=== PATIENT | female | born 1980 ===

== ENCOUNTER 2019-03-24 10:47 | Emergency (ER) | payer BC, OTHER ==
[2019-03-24 11:17] VITALS: BP 115/69
[2019-03-24] MEDS ORDERED: Tetan/Diph/Pertus SYR(Tdap)* 0.5 ML SYR(BOOSTRIX) use SYR IM ONE (11:47)
--- NOTE | 2019-03-24 12:29 | UC ---
Laceration HPI - HPI Summary HPI Summary: 39 y/o female presents to the urgent care c/o puncture wound in medial aspect of the palm of hand w/ a [place] fence last night. Pt reports she slipped and to avoid falling she grabbed a fence and cut his hand. Cut was superficial, but she is not UTD w/ Tetanus vaccine. Pt irrigated well wound w/ Hydrogen peroxide and applied Triple antibiotic. Pain is 2/10 at touch. Seh can move her finger w/o any difficulty. Pt denies fever, SOB, chest pain, abdominal pain, N/V /D. - History Of Current Complaint Chief Complaint: UCSkin Stated Complaint: PUNCTURE WOUND RT HAND Time Seen by Provider: 03/24/19 11:46 Hx Obtained From: Patient Laceration Location: Hand - medial aspect of RT hand w/ a superficial puncture wound w/ a [place] fence last night Mechanism Of Injury: Sharp Trauma Onset/Duration: Sudden Onset, Lasting Hours - 12 hrs Severity: Mild Pain Intensity: 1 Pain Scale Used: 0-10 Numeric Aggravating Factors: Other: - touch Related History: Dominant Hand Right - Allergies/Home Medications Allergies/Adverse Reactions: Allergies Allergy/AdvReac Type Severity Reaction Status Date / Time Penicillins Allergy Unknown Verified 03/24/19 14:09 Reaction Details PMH/Surg Hx/FS Hx/Imm Hx Previously Healthy: Yes - Pt denies PMHX - Surgical History Surgical History: Yes Surgery Procedure, Year, and Place: lap endo metreosis removed - Family History Known Family History: Positive: Hypertension - Social History Occupation: Employed Full-time Lives: With Family Alcohol Use: Daily Substance Use Type: None Smoking Status (MU): Never Smoked Tobacco - Immunization History Hx Tetanus, Diphtheria Vaccination: No - Unknown Review of Systems All Other Systems Reviewed And Are Negative: Yes Constitutional: Positive: Negative Skin: Positive: Other - ouncture wound in the Rt palm w/ a [place] fence Eyes: Positive: Negative ENT: Positive: Negative Respiratory: Positive: Negative Cardiovascular: Positive: Negative Gastrointestinal: Positive: Negative Genitourinary: Positive: Negative Motor: Positive: Negative Neurovascular: Positive: Negative Musculoskeletal: Positive: Other: - Rt hand pain s/p puncture w/ a [place] fence Neurological: Positive: Negative Psychological: Positive: Negative Is Patient Immunocompromised?: No Physical Exam - Summary Physical Exam Summary: Vital Signs Reviewed: Yes General: well developed, well nourished female sitting in the examining table w/ o any apparent distress Eye Exam: Normal Eyes: Positive: Conjunctiva Clear - PERRLA, EOMI, fundi grossly normal ENT: Positive: Normal ENT inspection, Hearing grossly normal, Pharynx normal, TMs normal Neck: Positive: Supple, Nontender, No Lymphadenopathy Respiratory: Positive: Chest non-tender, Lungs clear, Normal breath sounds, No respiratory distress Cardiovascular: Positive: RRR, No Murmur, Pulses Normal, Brisk Capillary Refill Abdomen Description: Positive: Nontender, No Organomegaly, Soft. Negative: CVA Tenderness (R), CVA Tenderness (L) Bowel Sounds: Positive: Present Musculoskeletal: Positive: Strength Intact, ROM Intact, No Edema Neurological: Positive: Alert, Muscle Tone Normal Psychological Exam: Normal Skin: Positive:Lateral side of RT palm hand w/ diagonal linear superficial puncture wound about 0.5cm in size, no bleeding, no foreign body observed. mild tenderness to palpation, . FROM of RT hand, sensation intact, capillary refill brisk, and pulses WNL. Triage Information Reviewed: Yes Vital Signs: Initial Vital Signs Temp 98.3 F 03/24/19 11:13 Pulse 71 03/24/19 11:13 Resp 18 03/24/19 11:13 BP 115/69 03/24/19 11:13 Pulse Ox 100 03/24/19 11:13 Laceration Course/Dx - Course/Dx Course Of Treatment: 39 y/o female presents to the urgent care c/o puncture wound in medial aspect of the palm of hand w/ a [place] fence last night. Pt reports she slipped and to avoid falling she grabbed a fence and cut his hand. Cut was superficial, but she is not UTD w/ Tetanus vaccine. Pt irrigated well wound w/ Hydrogen peroxide and applied Triple antibiotic. Pain is 2/10 at touch. She can move her finger w/o any difficulty. Pt denies fever, SOB, chest pain, abdominal pain, N/V /D. Hx obtained.Pt w/ Lateral side of RT palm hand w/ diagonal linear superficial puncture wound about 0.5cm in size, no bleeding, no foreign body observed. mild tenderness to palpation. FROM of RT hand, on examination. Copious irrigation was done with saline and the wound explored. There was no FB or deep structure injury noted. wound cleaned w/ Iodine swabs and bacitracin oint applied. Wound dressed w/ sterile gauze. Tdap ordered and applied by nurse. Pt Rx Keflex PO as directed below. Pt advised if any signs of infection develop to immediately return to the urgent care of PCP for further management and treatment. Pt understood and agreed and left the clinic ambulating A&Ox3. - Differential Dx - Laceration/Wound Differental Diagnoses: Abrasion, Avulsion, Laceration, Puncture Wound, Tendon Laceration - Diagnosis Provider Diagnosis: Puncture wound of right hand Discharge - Sign-Out/Discharge Documenting (check all that apply): Patient Departure - d/C home All imaging exams completed and their final reports reviewed: No Studies - Discharge Plan Condition: Stable Disposition: HOME Prescriptions: Cephalexin CAP* [Keflex CAP*] 500 mg PO TID #21 cap Patient Education Materials: Puncture Wound (ED), Acute Wounds (ED) Referrals: Tami Carpio MD [Primary Care Provider] - 3 Days Additional Instructions: 1-Please take full course of antibiotic to avoid resistance. Take yogurts w/ probiotics or Culturelle to protect your GI system 2- Continue applying Bacitracin topical oint 2/day x 7 days. Keep wound clean and dry and avoid excessive movement w/ your hand. Keep it elevated to avoid swelling 3-Take Ibuprofen or Tylenol PO q6-8hrs prn for pain or swelling. 4- If you develop fever or redness around your finger despite the antibiotic please go to the ER immediately or return to the Urgent care. - Billing Disposition and Condition Condition: STABLE Disposition: Home
== END 2019-03-24 12:32 | disposition home or self-care (01) ==
LOC: UCEAST 10:47
DX: S61.431A Puncture wound without foreign body of right hand, initial encounter (principal); W26.8XXA Contact with other sharp object(s), not elsewhere classified, initial encounter; Y92.9 Unspecified place or not applicable; Z88.0 Allergy status to penicillin
CPT/HCPCS: 12001; 90472; 90715; 99212; G0463